=== PATIENT | female | born 1995 | race Caucasian/White ===

== ENCOUNTER 2020-04-29 16:36 | Emergency (ER) | payer OTHER ==
[~2020-04-29] VITALS: Ht 152.4 cm; Wt 63.5 kg
[2020-04-29] MEDS ORDERED: PROVIGIL 200 M200 MG PO (16:49)
[2020-04-29] MEDS ORDERED: ALTAVERA1 EACH PO (16:49)
[2020-04-29] MEDS ORDERED: AMITRIPTYLINE H10 M1 PO (16:49)
[2020-04-29] MEDS ORDERED: TORADOL 10 MG T10 MG PO (16:50)
[2020-04-29] MEDS ORDERED: LEVO-T25 MCG PO (16:50)
[2020-04-29] MEDS ORDERED: IMITREX 50 MG T50 MG PO (16:50)
[2020-04-29] MEDS ORDERED: FLEXERIL PO (16:50)
[2020-04-29] MEDS ORDERED: NEURONTIN 300M300 M2 PO (16:51)
[2020-04-29 20:04] VITALS: BP 122/69
== END 2020-04-29 20:04 | disposition home or self-care (01) ==
LOC: M.ERS 16:36
DX: G43.909 Migraine, unspecified, not intractable, without status migrainosus (principal); E03.9 Hypothyroidism, unspecified; Z79.899 Other long term (current) drug therapy

== ENCOUNTER 2020-04-29 21:37 | Emergency (ER) | payer OTHER ==
[~2020-04-29] VITALS: Ht 152.4 cm; Wt 63.5 kg
[~2020-04-29 21:37] MED LIST: ALTAVERA1 EACH PO; AMITRIPTYLINE H10 M1 PO; FLEXERIL PO; IMITREX 50 MG T50 MG PO; LEVO-T25 MCG PO; NEURONTIN 300M300 M2 PO; PROVIGIL 200 M200 MG PO; TORADOL 10 MG T10 MG PO
[2020-04-29 22:47] VITALS: BP 124/84
== END 2020-04-29 22:48 | disposition home or self-care (01) ==
LOC: M.ERS 21:37
DX: F41.9 Anxiety disorder, unspecified (principal); T45.0X5A Adverse effect of antiallergic and antiemetic drugs, initial encounter; G43.909 Migraine, unspecified, not intractable, without status migrainosus; E03.9 Hypothyroidism, unspecified; Z79.899 Other long term (current) drug therapy; Y92.89 Other specified places as the place of occurrence of the external cause